=== PATIENT | male | born 1960 | race Caucasian/White ===

== ENCOUNTER 2018-04-10 18:51 | Emergency (ER) | payer OTHER ==
--- NOTE | 2018-04-10 19:05 | ER Report ---
History and Physical Time Seen By MD: 19:03 HPI/ROS CHIEF COMPLAINT: Dizziness and vomiting HISTORY OF PRESENT ILLNESS: This is a 58-year-old male who presents to the emergency department for nausea and vomiting. Patient began to have some dizz iness about an hour and half ago, then progressed into vomiting. During the exam the patient has a rather forceful episode of vomiting. According to the significant other that in the room with him he is otherwise a relatively healthy person no history of dizziness, rarely has issues with vomiting. No fever or chills. No chest pain or shortness of breath. REVIEW OF SYSTEMS: Constitutional: No fever, no chills. Eyes: No discharge. ENT: No sore throat. Cardiovascular: No chest pain, no palpitations. Respiratory: No cough, no shortness of breath. Gastrointestinal: As above. Genitourinary: No hematuria. Musculoskeletal: No back pain. Skin: No rashes. Neurological: As above. Allergies: Coded Allergies: No Known Drug Allergies (Unverified , 04/10/18) Home Meds Active Scripts Ondansetron (ZOFRAN ODT) 4 Mg Tab.rapdis, 4 MG PO Q6H PRN for NAUSEA/VOMITING, #20 TAB.MIAC 0 Refills Prov:VITO PAEZ [facility]- 04/10/18 Promethazine Hcl (PROMETHAZINE HCL) 25 Mg Tablet, 25 MG PO Q8H, #12 TAB 0 Refills Prov:VITO PAEZ [facility]- 04/10/18 Past Medical/Surgical History The patient has a past medical and surgical history of to left ankle surgeries, 2 right shoulder surgeries. Reviewed Nurses Notes: Yes Constitutional Vital Sign - Last 24 Hours 04/10/18 04/10/18 04/10/18 04/10/18 19:06 19:13 19:21 19:30 Temp 98.6 Pulse 51 63 59 Resp 23 20 15 B/P (MAP) 130/91 139/86 (103) Pulse Ox 100 100 100 O2 Delivery Room Air 04/10/18 04/10/18 04/10/18 04/10/18 19:36 19:45 19:51 20:00 Pulse 59 67 Resp 18 14 B/P (MAP) 139/45 (76) 130/44 (72) Pulse Ox 100 100 10/05/1804/10/18 04/10/18 04/10/18 20:06 20:15 20:21 20:30 Pulse 60 56 Resp 35 15 B/P (MAP) 121/84 (96) 122/76 (91) Pulse Ox 86 100 04/10/18 20:36 Pulse 57 Resp 12 Pulse Ox 99 Physical Exam General Appearance: The patient is alert, has no immediate need for airway protection and no signs of toxicity. Eyes: Pupils equal and round no pallor or injection. 1-2 beats of lateral nystagmus bilaterally, no vertical nystagmus. EOM's intact. ENT, Mouth: Mucous membranes are moist. Right TM in nature position, pearly ye, landmarks noted, no injection. Left TM bulging, no injection, faint landmarks. Respiratory: There are no retractions, lungs are clear to auscultation. Cardiovascular: Regular rate and rhythm. No murmurs, clicks or rubs. Gastrointestinal: Abdomen is soft and non tender, no masses, bowel sounds normal. Neurological: Alert and oriented 4. Moving all extremities. Following all commands. No focal neuro deficits. Skin: Warm and dry, no rashes. Musculoskeletal: Neck is supple non tender. Extremities are nontender, nonswollen and have full range of motion. DIFFERENTIAL DIAGNOSIS: After history and physical exam differential diagnosis was considered for nausea and vomiting including but not limited to gastroenteritis, gastritis, eustachian tube dysfunction, vertigo, appendicitis, and medication side effect. Medical Decision Making Data Points Result Diagram: 04/10/18191404/10/181914 Laboratory Hematology Test 04/10/18 19:15 04/10/18 20:43 Red Blood Count 5.01 M/uL (4.00-5.60) Mean Corpuscular Volume 90.2 fL (80.0-96.0) Mean Corpuscular Hemoglobin 30.8 pg (26.0-33.0) Mean Corpuscular Hemoglobin Concent 34.1 g/dL (32.0-36.0) Red Cell Distribution Width 13.4 % (11.5-14.5) Mean Platelet Volume 9.2 fL (7.2-11.1) Neutrophils (%) (Auto) 43.2 % (39.4-72.5) Lymphocytes (%) (Auto) 42.8 % (17.6-49.6) Monocytes (%) (Auto) 10.8 % (4.1-12.4) Eosinophils (%) (Auto) 2.4 % (0.4-6.7) Basophils (%) (Auto) 0.8 % (0.3-1.4) Nucleated RBC Relative Count (auto) 0.1 /100WBC Neutrophils # (Auto) 3.8 K/uL (2.0-7.4) Lymphocytes # (Auto) 3.8 K/uL (1.3-3.6) Monocytes # (Auto) 1.0 K/uL (0.3-1.0) Eosinophils # (Auto) 0.2 K/uL (0.0-0.5) Basophils # (Auto) 0.1 K/uL (0.0-0.1) Nucleated RBC Absolute Count (auto) 0.01 K/uL Sodium Level 140 mmol/L (137-145) Potassium Level 3.2 mmol/L (3.5-5.0) Chloride Level 105 mmol/L (98-107) Carbon Dioxide Level 23 mmol/L (22-30) Blood Urea Nitrogen 22 mg/dl (9-21) Creatinine 0.80 mg/dl (0.66-1.25) Glomerular Filtration Rate Calc > 60.0 Random Glucose 146 mg/dl (75-110) Calcium Level 8.8 mg/dl (8.4-10.2) Total Bilirubin 0.4 mg/dl (0.2-1.3) Aspartate Amino Transf (AST/SGOT) 34 U/L (0-35) Alanine Aminotransferase (ALT/SGPT) 44 U/L (0-56) Alkaline Phosphatase 44 U/L (0-126) Total Protein 7.0 g/dl (6.3-8.2) Albumin 4.0 g/dl (3.5-5.0) Lipase 74 U/L (23-300) Urine Color Yellow Urine Clarity Slightly-cloudy Urine pH 7.0 pH (4.8-9.5) Urine Specific [place] 1.015 Urine Protein Negative mg/dL (NEGATIVE) Urine Glucose (UA) Negative mg/dL (NEGATIVE) Urine Ketones 20 mg/dL (NEGATIVE) Urine Blood Negative (NEGATIVE) Urine Nitrite Negative (NEGATIVE) Urine Bilirubin Negative (NEGATIVE) Urine Urobilinogen Negative mg/dL (0.2-1.9) Urine Leukocyte Esterase Negative (NEGATIVE) Urine RBC <1 /HPF (0-2/HPF) Urine WBC 3 /HPF (0-5/HPF) Urine Squamous Epithelial Cells None /LPF (</=FEW) Urine Amorphous Crystals Few /HPF Urine Bacteria Few /HPF (NONE-FEW) Urine Hyaline Casts Few /LPF (NONE-FEW) Urine Mucus Few /HPF (NONE-FEW) Chemistry Test 04/10/18 19:15 04/10/18 20:43 White Blood Count 8.9 k/uL (4.5-11.0) Red Blood Count 5.01 M/uL (4.00-5.60) Hemoglobin 15.4 g/dL (14.0-18.0) Hematocrit 45.2 % (42.0-52.0) Mean Corpuscular Volume 90.2 fL (80.0-96.0) Mean Corpuscular Hemoglobin 30.8 pg (26.0-33.0) Mean Corpuscular Hemoglobin Concent 34.1 g/dL (32.0-36.0) Red Cell Distribution Width 13.4 % (11.5-14.5) Platelet Count 211 K/uL (150-450) Mean Platelet Volume 9.2 fL (7.2-11.1) Neutrophils (%) (Auto) 43.2 % (39.4-72.5) Lymphocytes (%) (Auto) 42.8 % (17.6-49.6) Monocytes (%) (Auto) 10.8 % (4.1-12.4) Eosinophils (%) (Auto) 2.4 % (0.4-6.7) Basophils (%) (Auto) 0.8 % (0.3-1.4) Nucleated RBC Relative Count (auto) 0.1 /100WBC Neutrophils # (Auto) 3.8 K/uL (2.0-7.4) Lymphocytes # (Auto) 3.8 K/uL (1.3-3.6) Monocytes # (Auto) 1.0 K/uL (0.3-1.0) Eosinophils # (Auto) 0.2 K/uL (0.0-0.5) Basophils # (Auto) 0.1 K/uL (0.0-0.1) Nucleated RBC Absolute Count (auto) 0.01 K/uL Glomerular Filtration Rate Calc > 60.0 Calcium Level 8.8 mg/dl (8.4-10.2) Total Bilirubin 0.4 mg/dl (0.2-1.3) Aspartate Amino Transf (AST/SGOT) 34 U/L (0-35) Alanine Aminotransferase (ALT/SGPT) 44 U/L (0-56) Alkaline Phosphatase 44 U/L (0-126) Total Protein 7.0 g/dl (6.3-8.2) Albumin 4.0 g/dl (3.5-5.0) Lipase 74 U/L (23-300) Urine Color Yellow Urine Clarity Slightly-cloudy Urine pH 7.0 pH (4.8-9.5) Urine Specific [place] 1.015 Urine Protein Negative mg/dL (NEGATIVE) Urine Glucose (UA) Negative mg/dL (NEGATIVE) Urine Ketones 20 mg/dL (NEGATIVE) Urine Blood Negative (NEGATIVE) Urine Nitrite Negative (NEGATIVE) Urine Bilirubin Negative (NEGATIVE) Urine Urobilinogen Negative mg/dL (0.2-1.9) Urine Leukocyte Esterase Negative (NEGATIVE) Urine RBC <1 /HPF (0-2/HPF) Urine WBC 3 /HPF (0-5/HPF) Urine Squamous Epithelial Cells None /LPF (</=FEW) Urine Amorphous Crystals Few /HPF Urine Bacteria Few /HPF (NONE-FEW) Urine Hyaline Casts Few /LPF (NONE-FEW) Urine Mucus Few /HPF (NONE-FEW) Urinalysis Test 04/10/18 20:43 Urine Color Yellow Urine Clarity Slightly-cloudy Urine pH 7.0 pH (4.8-9.5) Urine Specific [place] 1.015 Urine Protein Negative mg/dL (NEGATIVE) Urine Glucose (UA) Negative mg/dL (NEGATIVE) Urine Ketones 20 mg/dL (NEGATIVE) Urine Blood Negative (NEGATIVE) Urine Nitrite Negative (NEGATIVE) Urine Bilirubin Negative (NEGATIVE) Urine Urobilinogen Negative mg/dL (0.2-1.9) Urine Leukocyte Esterase Negative (NEGATIVE) Urine RBC <1 /HPF (0-2/HPF) Urine WBC 3 /HPF (0-5/HPF) Urine Squamous Epithelial Cells None /LPF (</=FEW) Urine Amorphous Crystals Few /HPF Urine Bacteria Few /HPF (NONE-FEW) Urine Hyaline Casts Few /LPF (NONE-FEW) Urine Mucus Few /HPF (NONE-FEW) ED Course/Re-evaluation Clinical Indication for ER IV: Hydration, IV Access ED Course The patient was admitted to a room. History of physical obtained. Differential diagnoses were considered. IV was started. A CBC, CMP were obtained. A 1 L normal saline bolus was given. The milligrams IV Zofran were given with mild relief, patient was given 12.5 mg IV Phenergan. He should had significant relief from the Phenergan.CBC unremarkable, chemistry showing potassium at 3.2, glucose 146, urine showing ketones otherwise unremarkable. I did review the results with the patient and his . I did tell them that this could be a eustachian tube dysfunction with the physical findings of bulging left eardrum and recent travel from varying elevations, patient has also had recent seasonal allergy problems i [facility]. I do believe that the dizziness is secondary to the eustachian tube dysfunction. Patient had no other concerning physical findings. I did recommend that the patient and his state here in [facility] should they have any recurrent symptoms to return to the emergency department immediately. Patient was given a take home pack for Zofran and Phenergan. Patient was also sent home with a prescription for Phenergan and Zofran. Patient was also given a one-time dose of 40 mg IV Protonix. Patient states feeling much better at the time of discharge, ambulates out with steady gait. Decision to Disposition Date: Apr 10, 2018 Decision to Disposition Time: 20:40 Depart Departure Latest Vital Signs Vital Signs Date Time Temp Pulse Resp B/P (MAP) Pulse Ox O2 Delivery O2 Flow Rate FiO2 04/10/18 20:36 57 12 99 04/10/18 20:30 122/76 (91) 04/10/18 19:13 98.6 Room Air Impression: Primary Impression: Nausea & vomiting Additional Impressions: Vertigo Eustachian tube dysfunction Condition: Improved Disposition: HOME OR SELF-CARE New Scripts Ondansetron (ZOFRAN ODT) 4 Mg Tab.rapdis 4 MG PO Q6H PRN for NAUSEA/VOMITING, #20 TAB.MICA 0 Refills Prov: VITO PAEZ [facility] 04/10/18 Promethazine Hcl (PROMETHAZINE HCL) 25 Mg Tablet 25 MG PO Q8H, #12 TAB 0 Refills Prov: VITO PAEZ Kaitlin ROBISONP-BC 04/10/18 Patient Instructions: Acute Nausea and Vomiting (ED), Eustachian Tube Dysfunction (GEN), Vertigo (ED) Additional Instructions: Drink small, frequent sips of water, not large amounts until the nausea and vomiting have resolved. Take the Phenergan and Zofran as directed. Take a daily Zyrtec until you follow up with your primary care provider when you return home. Get plenty of rest. Return to the ED for any other concerns or worsening symptoms. Problem Qualifiers Primary Impression: Nausea & vomiting Vomiting type: unspecified Vomiting Intractability: non-intractable Qualified Codes: R11.2 - Nausea with vomiting, unspecified Additional Impressions: Eustachian tube dysfunction Laterality: left Qualified Codes: H69.82 - Other specified disorders of eustachian tube, left ear VITO PAEZ Kaitlin [facility]-BC Apr 10, 2018 19:05
[2018-04-10] MEDS ORDERED: NS(*) 0.9% 1000 ML BAG 1,000 ML IV ONE (19:17)
[2018-04-10] MEDS ORDERED: ONDANSETRON 4 MG/2 ML VIAL IVP ONE (19:20)
[2018-04-10 19:23] LABS: PLATELET COUNT, AUTOMATED 211 K/uL (150-450)
[2018-04-10] MEDS ORDERED: PROMETHAZINE 25 MG/ML 1 ML AMP IVP ONE (19:55)
[2018-04-10 20:30] VITALS: BP 122/76
[2018-04-10] MEDS ORDERED: PROMETHAZINE HCL 25 MG TAB TH 2 TAB/BOTTLE PO ONE (20:40)
[2018-04-10] MEDS ORDERED: ONDANSETRON 4 MG ODT TH SL ONE (20:40)
[2018-04-10] MEDS ORDERED: PANTOPRAZOLE SOD 40 MG IV VIAL IVP ONE (20:40)
[2018-04-10] MEDS ORDERED: PROM-110 PO (20:42)
[2018-04-10] MEDS ORDERED: ONDA4TAB PO (20:42)
== END 2018-04-10 20:59 | disposition home or self-care (01) ==
LOC: ER 19:08
DX: H69.82 Other specified disorders of Eustachian tube, left ear (principal); R11.2 Nausea with vomiting, unspecified; R42 Dizziness and giddiness
CPT/HCPCS: 81001; 83690; 85025; 96361; 96374; 96375; 99284; C9113; J2405; J2550; J7030; S0119; 82040; 82247; 82310; 82374; 82435; 82565; 82947; 84075; 84132; 84155; 84295; 84450; 84460; 84520